=== PATIENT | male | born 1950 | race Caucasian/White ===

== ENCOUNTER → 2017-05-29 | Outpatient (CLI) | payer OTHER, BC | END | disposition home or self-care (01) | LOC: RADECHMAIN 16:28 | PROVIDERS: ATTEND Family Medicine | DX: R94.31 Abnormal electrocardiogram [ECG] [EKG] (principal) | CPT/HCPCS: 93005 ==

== ENCOUNTER → 2020-04-19 | Outpatient (CLI) | payer BC, MEDICARE ==
[2020-04-19 15:57] LABS: African American GFR (CKD) >90 (>60 ml/min/1.73 sqM); Blood Urea Nitrogen 20 mg/dL (9-20); Non-African American GFR(CKD) >90 (>60 ml/min/1.73 sqM)
--- NOTE | 2020-04-22 14:18 | CT ---
EXAMINATION TYPE: CT urogram wo/w con DATE OF EXAM: 04/19/2020 COMPARISON: CT abdomen and pelvis 07/06/2016 HISTORY: Urinary incontinence. Microhematuria. Urinary tract infection. CT DLP: 1333.8 mGycm, Automated Exposure Control for Dose Reduction was Utilized. CONTRAST: CT scan of the abdomen and pelvis is performed with oral and without and with IV Contrast, patient in jected with 100 mL of Isovue 300. Three-dimensional images were generated and utilized on a separate workstation. FINDINGS: LUNG BASES: No significant abnormality is appreciated. LIVER/GB: No significant abnormality is appreciated. PANCREAS: No significant abnormality is seen. SPLEEN: No significant abnormality is seen. ADRENALS: No significant abnormality is seen. KIDNEYS: No urolithiasis. No hydronephrosis or hydroureter. No renal mass. There is no evidence of ur othelial stricture, significant dilatation, or mass lesion. The urinary bladder demonstrates incomple te distention with trabeculated appearance. Excreted urinary contrast in the urinary bladder opacifie s the posterior half of the urinary bladder, with no evidence of mass lesion seen posteriorly. BOWEL: Right hemicolectomy postsurgical changes with anastomosis in the right mid abdomen. No evidenc e of bowel obstruction or thickening. PROSTATE/SEMINAL VESICLES: The prostate is enlarged. LYMPH NODES: Redemonstrated mesenteric enlarged lymph nodes of the upper abdomen, not significant zane nge from 2016 CT comparison. PERITONEUM: Mesenteric stranding of the upper abdomen and region of the enlarged lymph nodes unchange d from 2016 CT comparison. No free fluid or pneumoperitoneum. VASCULATURE: No abdominal aortic aneurysm. OSSEOUS STRUCTURES: No acute osseous abnormality. IMPRESSION: 1. Enlarged prostate and trabeculated urinary bladder most likely represent chronic urinary bladder o utlet obstruction. 2. CT urogram demonstrates no urothelial abnormality. No urolithiasis. 3. 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
== END | disposition home or self-care (01) ==
LOC: RADCTMAIN 15:11
PROVIDERS: ATTEND Urology
DX: N40.1 Benign prostatic hyperplasia with lower urinary tract symptoms (principal); N39.0 Urinary tract infection, site not specified; K65.4 Sclerosing mesenteritis; N39.498 Other specified urinary incontinence
CPT/HCPCS: 82565; 84520; 74178; 36415; 74400; Q9967

== ENCOUNTER 2021-06-28 07:21 | Day surgery (SDC) | payer BC, MEDICARE ==
[2021-06-26 10:06] VITALS: BMI 24.4
[~2021-06-28 07:21] MED LIST: LACTATED RINGERS 1,000 ML IV SCH
[2021-06-28 07:30] VITALS: TEMP 97.8
[2021-06-28] MEDS ORDERED: LACTATED RINGERS 1,000 ML IV ONE (07:30)
[2021-06-28] MEDS ORDERED: PROPOFOL 10 MG/ML 20 ML VIAL IV ONE (07:58)
--- NOTE | 2021-06-28 08:14 | P.PCN ---
Date of Procedure: 06/28/21 Procedure(s) Performed: BRIEF HISTORY: Patient is a he 10-year-old [place] 70 scheduled for an elective colonoscopy as a part of surveillance of prior history of colon cancer diagnosed in 1998. He is status post post right hemicolectomy. Last coloscopy was 5 years ago. PROCEDURE PERFORMED: Colonoscopy. PREOPERATIVE DIAGNOSIS: History of colon cancer. IV sedation per Anesthesia. PROCEDURE: After informed consent was obtained, the patient, was brought into the endoscopy unit. IV sedation was administered by Anesthesia under continuous monitoring. Digital rectal examination was normal. Initially the Olympus CF-160 flexible video colonoscope was then inserted in the rectum, gradually advanced into the mid the liquid anastomosis was visualized and appeared normal. Prep was excellent. Mucosa of the transverse colon, descending colon, sigmoid colon, and rectum appeared normal. Retroflexion was performed in the rectum and small internal hemorrhoids were seen. were seen. The patient tolerated the procedure well. IMPRESSION: Normal-appearing colon from rectum to the ileocolic anastomosis in the right colon with no evidence of colorectal neoplasia. RECOMMENDATIONS: Findings of this examination were discussed with the patient as well as his family. He was advised to have a repeat surveillance colonoscopy in 5 years from now because of the prior history of colon cancer..
[2021-06-28 08:18] VITALS: PULSE 61; RESP 16
[2021-06-28 08:32] VITALS: BP 140/82
== END 2021-06-28 08:54 | disposition home or self-care (01) ==
LOC: ORWHC2ENDO 07:21
PROVIDERS: ATTEND Internal Medicine Gastroenterology
DX: Z12.11 Encounter for screening for malignant neoplasm of colon (principal); K64.8 Other hemorrhoids; K21.9 Gastro-esophageal reflux disease without esophagitis; Z85.038 Personal history of other malignant neoplasm of large intestine; Z90.49 Acquired absence of other specified parts of digestive tract; I10 Essential (primary) hypertension; E78.5 Hyperlipidemia, unspecified; Z85.46 Personal history of malignant neoplasm of prostate; Z79.82 Long term (current) use of aspirin; Z79.899 Other long term (current) drug therapy
CPT/HCPCS: 45378; J2704

== ENCOUNTER → 2022-07-29 | Outpatient (CLI) | payer BC, MEDICARE ==
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
== END | disposition home or self-care (01) ==
LOC: RADUSWWP 10:51
PROVIDERS: ATTEND Family Medicine
DX: R22.41 Localized swelling, mass and lump, right lower limb (principal)